=== PATIENT | male | born 1970 | race Caucasian/White ===

== ENCOUNTER → 2022-09-09 | Outpatient (CLI) | payer OTHER ==
[~2022-09-09] MED LIST: IOHEXOL 350 MG/ML 100 ML VIAL ONE; SODIUM CHLORIDE 0.9% 100 ML ONE
== END | disposition home or self-care (01) ==
LOC: RADMN 08:19
PROVIDERS: ATTEND Family Medicine
DX: J36 Peritonsillar abscess (principal)
CPT/HCPCS: 71260; Q9967; J7050